=== PATIENT | male | born 1975 | race Caucasian/White ===

== ENCOUNTER 2025-02-06 11:08 | Emergency (ER) | payer MEDICAID, SELFPAY ==
[2025-02-06 11:08] VITALS: BMI 52.9
[2025-02-06 11:30] VITALS: BP 129/77; PULSE 88; RESP 18; TEMP 36.6; O2SAT 99
--- NOTE | 2025-02-06 11:52 | XR_ITS ---
Examination: Shoulder,left, 3 views Technique: Shoulder AP internal rotation, AP external rotation, Y view shoulder, 3 views Exam date and time :February 06, 2025 1229 hours INDICATIONS: Patient fell today with injury to the shoulder, shoulder pain. FINDINGS: No shoulder fracture or dislocation No AC joint separation IMPRESSION: No shoulder fracture or dislocation
[2025-02-06] MEDS: KETOROLAC INJ 60 MG/2 ML VIAL 30 MG IM (12:05)
[2025-02-06 13:49] VITALS: BP 136/78; PULSE 54
[2025-02-06] MEDS: HYDROcodone/APAP 5/325 TABLET 1 TAB PO (14:30)
--- NOTE | 2025-02-06 15:26 | EDNOTE_ITS ---
<Statement entered by Monica Dunn MD - 02/06/25 17:45> As co-signing physician, I was present and available for consult prn. I concur with the plan and care as documented by the midlevel provider. Upper Extremity Injury RME/HPI General Chief Complaint: Extremity Injury, Upper Stated Complaint: S/P FALL L SHOULDER PAIN Time Seen by Provider: 02/06/25 11:52 Source: patient Arrival date/time: 02/06/25 11:08 49-year-old male with a history of hypertension presents to the emergency room with a chief complaint of tenderness and pain to his left shoulder after a fall that occurred yesterday. Mode of arrival: ambulatory Limitations: no limitations Related Data Home Medications ?Medication ?Instructions ?Recorded ?Confirmed allopurinol 100 mg tablet 1 tab PO QDAY #0 tabs 09/25/19 (Zyloprim) atorvastatin 40 mg tablet 40 mg PO QDAY 06/24/2006/24 lisinopril 20 mg tablet 20 mg PO QDAY 06/24/2006/24 omeprazole magnesium 10 mg oral 10 mg PO QDAY 06/24/20 06/24/20 suspension,delayed release (Prilosec) Previous Rx's ?Medication ?Instructions ?Recorded indomethacin 50 mg capsule 50 mg PO TID #21 caps 09/25 amiodarone 200 mg tablet 200 mg PO BID #60 tabs 06/29 apixaban 5 mg tablet (Eliquis) 5 mg PO BID #60 tabs Allergies Allergy/AdvReac Type Severity Reaction Status Date / Time No Known Allergies Allergy Verified 02/06/25 11:08 Review of Systems Review of Systems Systems Reviewed: All systems reviewed, normal except as documented Constitutional Constitutional: Reports system reviewed and no additional complaints, except as documented, Denies fatigue, Denies fever(s), Denies headache(s) and Denies weakness Eyes Eyes: Reports system reviewed and no additional complaints, except as documented, Denies blurry vision and Denies change in vision ENT Ears, Nose, Mouth, and Throat: Reports system reviewed and no additional complaints, except as documented, Denies otalgia, Denies headache(s), Denies nasal congestion, Denies throat swelling and Denies vertigo Cardiovascular Cardiovascular: Reports system reviewed and no additional complaints, except as documented, Denies chest pain, Denies dyspnea and Denies dyspnea on exertion Respiratory Respiratory: Reports system reviewed and no additional complaints, except as documented, Denies chest congestion, Denies cough, Denies dyspnea, Denies dyspnea on exertion and Denies wheezing Gastrointestinal Gastrointestinal: Reports system reviewed and no additional complaints, except as documented, Denies abdominal pain, Denies cramping, Denies nausea and Denies vomiting Genitourinary Genitourinary: Reports system reviewed and no additional complaints, except as documented, Denies dysuria and Denies hematuria Musculoskeletal Musculoskeletal: Reports system reviewed and no additional complaints, except as documented, Reports arthralgias, Denies back pain, Reports joint swelling and Reports limited range of motion Integumentary/Breasts Skin/Breast: Reports system reviewed and no additional complaints, except as documented and Denies wounds Neurologic Neurologic: Reports system reviewed and no additional complaints, except as documented, Denies confusion, Denies headache(s), Denies lack of coordination, Denies vertigo and Denies weakness Psychiatric Psychiatric: Reports system reviewed and no additional complaints, except as documented, Denies anxiety, Denies confusion, Denies depression, Denies paranoia, Denies suicidal ideation and Denies tactile hallucinations Endocrine Endocrine: Reports system reviewed and no additional complaints, except as documented and Denies fatigue Hematologic/Lymphatic Hematologic/Lymphatic: Reports system reviewed and no additional complaints, except as documented and Denies lymphadenopathy Allergic/Immunologic Allergic/Immunologic: Reports system reviewed and no additional complaints, except as documented, Denies throat swelling, Denies urticaria and Denies wheezing Past Medical History Past Medical History CARDIAC: Positive Hypercholesterolemia and Hypertension; Negative Congestive Heart Failure RESPIRATORY: Positive Sleep Apnea; Negative Chronic Obstructive Pulmonary Disease (COPD) GASTROINTESTINAL: Positive Gastroesophageal Reflux Disease GENITOURINARY: Negative Renal Disease MUSCULOSKELETAL: Positive Gout ENDOCRINE: Positive Diabetes Mellitus Type 2; Negative Diabetes Mellitus Type 1 Social History SMOKING STATUS: Never smoker ED Exam General Limitations: Present no limitations General appearance: Present alert and in no apparent distress Head Head exam: Present atraumatic Eye Eye exam: Present normal appearance, PERRL and EOMI ENT ENT exam: Present normal exam, normal oropharynx and mucous membranes moist Neck Neck exam: Present normal inspection, full ROM and trachea midline Chest Chest inspection: Present normal inspection and symmetric chest wall rise Respiratory Respiratory exam: Present normal lung sounds bilaterally Cardiovascular Cardiovascular exam: Present regular rate, normal rhythm and normal heart sounds Abdominal Exam Abdominal exam: Present soft and normal bowel sounds Extremities Exam Extremities exam: Present normal inspection and full ROM Expanded Upper Extremity Exam Shoulder exam: Present tenderness, swelling and tenderness over AC joint; Absent full ROM Arm exam: Present normal inspection Elbow exam: Present normal inspection Forearm/Wrist exam: Present normal inspection Hand exam: Present normal inspection Vascular exam: Normal capillary refill Back Exam Back exam: Present normal inspection and full ROM Neurological Exam Neurological exam: Present alert, oriented X3 and CN II-XII intact Psychiatric Psychiatric exam: Present normal affect and normal mood Skin Skin exam: Present warm, dry, intact and normal color Course Quality Measures none Orders Category Date Time Status XR shoulder LT min 2V Stat Exams 02/06/25 11:52 Completed HYDROcodone*/APAP 5/325 [Dyke 5/325] Med 02/06/25 14:24 Discontinued 1 tab PO X1 ONE Ketorolac Inj [Toradol Inj] Med 02/06/25 11:52 Discontinued 30 mg IM X1 ONE Vital Signs Vital signs: Vital Signs Temperature 98 F 02/06/25 11:30 Pulse Rate 88 02/06/25 11:30 Respiratory Rate 18 02/06/25 11:30 Blood Pressure 129/77 02/06/25 11:30 Pulse Oximetry (%) 99 02/06/25 11:30 Oxygen Delivery Method Room Air 02/06/25 11:30 O2 saturation 99% within normal limits Extremity Injury MDM Narrative MDM Narrative:: 49-year-old male with a history of hypertension presents to the emergency room with a chief complaint of tenderness and pain to his left shoulder after a fall that occurred yesterday. Patient is hemodynamically stable and in no apparent distress Physical examination shows pain and tenderness to the patient's left shoulder. The patient has a very limited range of motion and is unable to lift his shoulder above his head. Patient has tenderness to the AC joint with palpation. X-ray of the shoulder was completed and was negative for any acute fracture or dislocation. I spoke to the patient and told him that he will need to follow-up with his primary care provider for an MRI to check for any ligament damage or tears. A sling was given to the patient for comfort as well as pain medication. Patient was discharged and educated to follow-up with primary care provider in the next 24 to 48 hours and return to the emergency room for any evidence of worsening signs or symptoms Patient data External records reviewed:: [facility] previous records Clinical information provided by:: patient Social determinants that could affect healthcare access:: none Patient has the following chronic illnesses:: No chronic illness How is presenting disease/condition affected by chronic disease/condition?: no chronic disease Evaluation data The following diagnostics were reviewed and interpreted by me:: lab results and radiology exam(s) Lab and/or radiology exams considered but not ordered:: Labs and radiology exams considered and ordered Interpretation Summary: Left shoulder [id number]: No shoulder fracture or dislocation No AC joint separation IMPRESSION: No shoulder fracture or dislocation Medications / Prescriptions Medications or Prescriptions considered but not ordered:: Medication given Medication administrations:: Medication Administration History Discontinued Medications Hydrocodone Bitart/Acetaminophen (Hydrocodone/Apap 5/325 Tablet) 1 tab PO X1 ONE Stop: 02/06/25 14:25 Last Admin: 02/06/25 14:30 Dose: 1 tab Documented By: [facility] Ketorolac Tromethamine (Ketorolac Inj 60 Mg/2 Ml Vial) 30 mg IM X1 ONE Stop: 02/06/25 11:53 Last Admin: 02/06/25 12:05 Dose: 30 mg Documented By: JOHNATHON Medication given Consultations Consultation(s) initiated? (list below): No Diagnosis Upper Extremity Injury Differential Diagnosis: dislocation of shoulder and other (Shoulder fracture/shoulder sprain) Most likely diagnosis given after review of the tests above:: Shoulder sprain Admission Indicated Admission indicated?: not indicated Admission Request Was there a request for admission?: No Disposition Plan Disposition Plan: Discharge Discharge Attestation Discharge Attestation: The patient and all family members were given an opportunity to ask questions and understood the discharge instructions. Discharge instructions specifically effects, indications for sooner follow up or return to the emergency department, and the expected course of current diagnosis. Patient condition: Stable Discharge Plan Plan Patient Disposition: HOME (Self Care) Disposition Comment: Stable Prescriptions/Referrals Prescriptions/Med Rec: No Action allopurinol [Zyloprim] 100 MG tablet 1 tab PO QDAY Qty: 0 indomethacin 50 mg capsule 50 mg PO TID Qty: 21 0RF Rx Instructions: administer with food or milk atorvastatin 40 mg Tablet 40 mg PO QDAY lisinopril 20 mg Tablet 20 mg PO QDAY Prilosec 10 mg Susp,Delayed Release For Recon 10 mg PO QDAY amiodarone 200 mg Tablet 200 mg PO BID Qty: 60 0RF Eliquis 5 mg tablet 5 mg PO BID Qty: 60 0RF Referrals: Dom Jensen FNP [Primary Care Provider] - In 1 week Problem List Clinical Impression: Sprain of left shoulder Patient/Caregiver Discharge Instructions Education Materials: ED Shoulder Sprain Additional Instructions: Please follow-up with your primary care provider in the next 24 to 48 hours. The x-ray of your left shoulder was completed and was negative for any acute fracture or dislocation of your shoulder. You will need to follow-up with your primary care provider to assess for any ligament damage or tears to your rotator cuff. Please keep your sling in place for comfort until you are seen by specialist For any evidence of worsening signs or symptoms return the emergency room immediately Print Language: Finnish Stand Alone Forms: Cheryl Award Info., Patient Portal Info Letter BOBBY/MIGUEL Supervising Physician BOBBY/MIGUEL Supervising Physician: Dr. DUNN
== END 2025-02-06 14:32 | disposition home or self-care (01) ==
PROVIDERS: Emergency Provider Emergency Medicine; PCP Nurse Practitioner
DX: S43.402A Unspecified sprain of left shoulder joint, initial encounter (principal)
CPT/HCPCS: 73030; 96372; 99283; J1885; A9270